=== PATIENT | female | born 1980 | race Caucasian/White ===

== ENCOUNTER 2017-07-23 15:23 | Emergency (ER) | payer OTHER ==
[2017-07-23 15:46] VITALS: BP 154/95
--- NOTE | 2017-07-23 16:00 | ER Document Report ---
ED Medical Screen (RME) - General Chief Complaint: Abdominal Pain Stated Complaint: ABDOMINAL PAIN Time Seen by Provider: 07/23/17 15:57 TRAVEL OUTSIDE OF THE [place] IN LAST 30 DAYS: No - HPI Notes: 07/23/17 16:00 Right lower quadrant abdominal pain has been ultrasound performed this morning outpatient states that her vision is fine concerned about possible appendicitis. - Related Data Allergies/Adverse Reactions: codeine [Codeine] Allergy (Unknown, Verified 05/03/12 09:25) as child Penicillins Allergy (Unknown, Verified 05/03/12 09:25) as child Past Medical History - Past Medical History Cardiac Medical History: Denies: Hx Coronary Artery Disease, Hx Heart Attack, Hx Hypertension Pulmonary Medical History: Reports: Hx Asthma - childhood Denies: Hx Bronchitis, Hx COPD, Hx Pneumonia Neurological Medical History: Denies: Hx Cerebrovascular Accident, Hx Seizures Renal/ Medical History: Denies: Hx Peritoneal Dialysis Musculoskeltal Medical History: Denies Hx Arthritis Past Surgical History: Denies: Hx Pacemaker - Immunizations Hx Diphtheria, Pertussis, Tetanus Vaccination: No Review of Systems - Review of Systems Gastrointestinal: Abdominal pain Physical Exam - Vital signs Vitals: Temp Pulse Resp BP Pulse Ox 99 F 92 16 154/95 H 99 07/23/17 15:42 07/23/17 15:42 07/23/17 15:42 07/23/17 15:42 07/23/17 15:42 - Cardiovascular Rhythm: Regular Heart sounds: Normal auscultation Course - Vital Signs Vital signs: Temp Pulse Resp BP Pulse Ox 99 F 92 16 154/95 H 99 07/23/17 15:42 07/23/17 15:42 07/23/17 15:42 07/23/17 15:42 07/23/17 15:42
[2017-07-23] MEDS ORDERED: NORMAL SALINE 1000 ML 1,000 ML IV ONE (16:03)
[2017-07-23 16:29] LABS: ABSOLUTE BASOPHILS # (AUTO) 0.1 10^3/uL (0.0-0.2); ABSOLUTE EOSINOPHILS # (AUTO) 0.1 10^3/uL (0.0-0.6); ABSOLUTE LYMPHOCYTES (AUTO) 2.1 10^3/uL (0.5-4.7); ABSOLUTE MONOCYTES (AUTO) 0.5 10^3/uL (0.1-1.4); ABSOLUTE NEUT (AUTO) 4.5 10^3/uL (1.7-8.2); APPEARANCE,URINE CLEAR; BASOPHILS % (AUTO) 0.8 % (0-2); BILIRUBIN,URINE NEGATIVE (NEGATIVE); EOSINOPHILS % (AUTO) 1.6 % (0-6); GLUCOSE, URINE NEGATIVE (NEGATIVE); HEMATOCRIT 41.7 % (36.0-47.0); HEMOGLOBIN 14.7 g/dL (12.0-15.5); HGB HCT DIFFERENCE 2.4; KETONES,URINE NEGATIVE (NEGATIVE); LEUKOCYTE ESTERASE,URINE NEGATIVE (NEGATIVE); LYMPHOCYTES % (AUTO) 28.6 % (13-45); MEAN CORPUSCULAR HEMOGLOBIN 31.6 pg (27.0-33.4); MEAN CORPUSCULAR HGB CONC 35.2 g/dL (32.0-36.0); MEAN CORPUSCULAR VOLUME 90 fl (80-97); MONOCYTES % (AUTO) 7.2 % (3-13); NITRITE,URINE NEGATIVE (NEGATIVE); PROTEIN,URINE NEGATIVE (NEGATIVE); RED BLOOD COUNT 4.64 10^6/uL (3.72-5.28); RED CELL DISTRIBUTION WIDTH 12.2 % (11.5-14.0); SEGMENTED NEUTROPHILS % (AUTO) 61.8 % (42-78); URINE SPECIFIC GRAVITY 1.008; UROBILINOGEN,URINE NEGATIVE mg/dL (<2.0); WHITE BLOOD COUNT 7.2 10^3/uL (4.0-10.5)
[2017-07-23 16:55] LABS: ALANINE AMINOTRANSFERASE 25 U/L (9-52); ALBUMIN 4.7 g/dL (3.5-5.0); ALKALINE PHOSPHATASE 63 U/L (38-126); ANION GAP 12 (5-19); ASPARTATE AMINO TRANSFERASE 21 U/L (14-36); BILIRUBIN,DIRECT 0.3 mg/dL (0.0-0.4); BILIRUBIN,TOTAL 0.6 mg/dL (0.2-1.3); BLOOD UREA NITROGEN 10 mg/dL (7-20); CARBON DIOXIDE 29 mmol/L (22-30); CHLORIDE 101 mmol/L (98-107); CREATININE RESULT 0.59 mg/dL (0.52-1.25); GLUCOSE 116 mg/dL (75-110); POTASSIUM 4.4 mmol/L (3.6-5.0); SODIUM 141.7 mmol/L (137-145); TOTAL PROTEIN 7.4 g/dL (6.3-8.2)
--- NOTE | 2017-07-23 17:41 | ER Document Report ---
ED GI/ - General Chief Complaint: Abdominal Pain Stated Complaint: ABDOMINAL PAIN Time Seen by Provider: 07/23/17 15:57 Notes: Patient is a 37-year-old male who presents emergency department complaining of right back and right lower quadrant pain. Patient states that her symptoms started yesterday evening suddenly. Patient states that she was not doing anything in particular when she had right low back pain start. Patient states that she is normally pain-free. Patient states that this morning she woke up and it felt worse kind of rotating into the right lower quadrant. Patient states his pain as a dull ache with sharp stabbing qualities. She denies any nausea or vomiting. She admits to loose stools. States that she has had her gallbladder out but otherwise denies any other abdominal procedures. Patient states that she did go see her MANAGER STYLIST today who did an ultrasound and told her that her ovaries did not show any evidence of ectopic , cysts, abscess and that she should come here for evaluation for appendicitis. Patient denies any fever, chills at this time. States her pain is at baseline at 2/30 and at worst a 4/5. TRAVEL OUTSIDE OF THE [place] IN LAST 30 DAYS: No - Related Data Allergies/Adverse Reactions: codeine [Codeine] Allergy (Unknown, Verified 07/23/17 16:02) as child Penicillins Allergy (Unknown, Verified 07/23/17 16:02) as child Past Medical History - Social History Smoking Status: Former Smoker Chew tobacco use (# tins/day): No Frequency of alcohol use: None Drug Abuse: None Family History: Reviewed & Not Pertinent Patient has suicidal ideation: No Patient has homicidal ideation: No - Past Medical History Cardiac Medical History: Denies: Hx Coronary Artery Disease, Hx Heart Attack, Hx Hypertension Pulmonary Medical History: Reports: Hx Asthma - childhood Denies: Hx Bronchitis, Hx COPD, Hx Pneumonia Neurological Medical History: Denies: Hx Cerebrovascular Accident, Hx Seizures Renal/ Medical History: Denies: Hx Peritoneal Dialysis Musculoskeltal Medical History: Denies Hx Arthritis Past Surgical History: Denies: Hx Pacemaker - Immunizations Hx Diphtheria, Pertussis, Tetanus Vaccination: No Review of Systems - Review of Systems Constitutional: No symptoms reported Cardiovascular: No symptoms reported Respiratory: No symptoms reported Gastrointestinal: See HPI Genitourinary: No symptoms reported -: Yes All other systems reviewed and negative Physical Exam - Vital signs Vitals: Temp Pulse Resp BP Pulse Ox 99 F 92 16 154/95 H 99 07/23/17 15:42 07/23/17 15:42 07/23/17 15:42 07/23/17 15:42 07/23/17 15:42 - Notes Notes: PHYSICAL EXAM GENERAL: Alert, interacts well. LUNGS: Clear to auscultation bilaterally, no wheezes, rales, or rhonchi. No respiratory distress. HEART: Regular rate and rhythm. No murmurs, gallops, or rubs. ABDOMEN: Soft, nondistended, right lower quadrant mildly tender with suprapubic tenderness. Negative McBurney's point tenderness. No guarding, rebound, or rigidity.. Bowel sounds present in all 4 quadrants. EXTREMITIES: Moves all 4 extremities spontaneously. No edema, radial and dorsalis pedis pulses 2/4 bilaterally. No cyanosis. NEUROLOGICAL: Alert and oriented x4. Normal speech. PSYCH: Normal affect, normal mood. SKIN: Warm, dry, normal turgor. No rashes or lesions noted. Course - Re-evaluation Re-evalutation: 07/23/17 17:45 Patient is a 37-year-old female who is hemodynamically stable, no acute distress and afebrile. Based on referral from MANAGER STYLIST and right lower quadrant tenderness will conduct evaluation for appendicitis. Patient has been tolerating p.o. contrast without any difficulty. Patient denies any pain or nausea at this time patient admits to tolerable RLQ pain. 07/23/17 18:[address] abd/pelvis. Declining pain medication, denies nausea 07/23/17 19:29 CT does not show any evidence of acute appendicitis. After performing a Medical Screening Examination, I estimate there is LOW risk for ACUTE APPENDICITIS, BOWEL OBSTRUCTION, ACUTE CHOLECYSTITIS, PERFORATED DIVERTICULITIS, INCARCERATED HERNIA, PANCREATITIS, PELVIC INFLAMMATORY DISEASE, PERFORATED ULCER, ECTOPIC , or TUBO-OVARIAN ABSCESS, thus I consider the discharge disposition reasonable. Also, there is no evidence or peritonitis , sepsis, or toxicity. I have reevaluated this patient multiple times and no significant life threatening changes are noted. The patient and I have discussed the diagnosis and risks, and we agree with discharging home with close follow-up with the understanding that symptoms and presentations can change. We also discussed returning to the Emergency Department immediately if new or worsening symptoms occur. We have discussed the symptoms which are most concerning (e.g., bloody stool, fever, changing or worsening pain, vomiting) that necessitate immediate return. - Vital Signs Vital signs: Temp Pulse Resp BP Pulse Ox 99 F 92 16 154/95 H 99 07/23/17 15:42 07/23/17 15:42 07/23/17 15:42 07/23/17 15:42 07/23/17 15:42 - Laboratory Result Diagrams: 07/23/17 16:07 07/23/17 16:07 Laboratory results interpreted by me: 07/23/17 16:07 Glucose 116 H - Diagnostic Test Radiology reviewed: Image reviewed, Reports reviewed Discharge - Discharge Clinical Impression: Abdominal pain Qualifiers: Abdominal location: right lower quadrant Qualified Code(s): R10.31 - Right lower quadrant pain Condition: Good Disposition: HOME, SELF-CARE Instructions: Observation for Appendicitis ([facility]) Additional Instructions: ABDOMINAL PAIN: There are many causes of abdominal pain. Pain can mean a serious problem requiring surgery (such as appendicitis). It can also be an innocent problem that goes away on its own (such as a viral infection). Often, time must pass to determine the cause of pain. The physician does not feel that hospitalization is necessary, at present. Things may change within the next 24 hours. Call the doctor or come back for re- examination if any problems occur, such as: (1) Pain that becomes more severe, steady, or becomes concentrated in one specific area. Also, pain that is more severe with movement or coughing. (2) Vomiting that persists or becomes more frequent. (3) Blood in the vomitus, urine, or bowel movements. Blood in the stool may have a tarry or black appearance. (4) Shaking chills or fever greater than 100 degrees F. (5) The abdomen becomes more distended or swollen. (6) Bowel movements cease. (7) Failure to improve as expected. NORMAL EXAM AND WORKUP: At this time, your examination and workup show no significant abnormality. No significant abnormal physical findings are noted. All laboratory, EKG, and imaging (x-ray, CT scans, ultrasound) studies that were ordered show no significant abnormality. Although your examination and all studies that were ordered showed no significant abnormal finding, there are no examinations and no studies that are 100% accurate. There is always the possibility that some abnormality could exist and not be detected with physical examination or within the limits and capabilities of laboratory and other studies. You should return or follow up as you were instructed on your visit today for further evaluation if your symptoms do not resolve. FOLLOW-UP CARE: If you have been referred to a physician for follow-up care, call the physician s office for an appointment as you were instructed or within the next two days. If you experience worsening or a significant change in your symptoms, notify the physician immediately or return to the Emergency Department at any time for re-evaluation. Referrals: RACHEL STEWART MD [Primary Care Provider] - Follow up as needed
--- NOTE | 2017-07-23 19:12 | RADIOLOGY REPORT (SQ) ---
EXAM DESCRIPTION: CT ABD/PELVIS WITH IV ORAL COMPLETED DATE/TIME: 07/23/2017 6:54 pm REASON FOR STUDY: rlq pain COMPARISON: None. TECHNIQUE: CT scan of the abdomen and pelvis performed using helical scanning technique with dynamic intravenous contrast injection. No oral contrast. Images reviewed with lung, soft tissue, and bone windows. Reconstructed coronal and sagittal MPR images reviewed. Delayed images for evaluation of the urinary system also acquired. All images stored on PACS. All CT scanners at this facility use dose modulation, iterative reconstruction, and/or weight based d osing when appropriate to reduce radiation dose to as low as reasonably achievable (ALARA). [facility]: Dose Right [facility]: CareDose [facility]: Dose Right [facility]: Teradose 4D [facility]: [employer] CONTRAST TYPE AND DOSE: contrast/concentration: Isovue 370.00 mg/ml; Total Contrast Delivered: 83.0 ml; Total Saline Delivered: 68.0 ml RENAL FUNCTION: None required. The patient is less than 50 years old. RADIATION DOSE: Up-to-date CT equipment and radiation dose reduction techniques were employed. CTDIv ol: 7.3 - 10.4 mGy. DLP: 975 mGy-cm.. LIMITATIONS: None. FINDINGS: LOWER CHEST: No significant findings. No nodules or infiltrates. LIVER: Normal size. No masses. No dilated ducts. SPLEEN: Normal size. No focal lesions. PANCREAS: No masses. No significant calcifications. No adjacent inflammation or peripancreatic fluid collections. Pancreatic duct not dilated. GALLBLADDER: No identified stones by CT criteria. No inflammatory changes to suggest cholecystitis. ADRENAL GLANDS: No significant masses or asymmetry. RIGHT KIDNEY AND URETER: No solid masses. No significant calcifications. No hydronephrosis or hyd roureter. LEFT KIDNEY AND URETER: No solid masses. No significant calcifications. No hydronephrosis or hydr oureter. AORTA AND VESSELS: No aneurysm. No dissection. Renal arteries, SMA, celiac without stenosis. RETROPERITONEUM: No retroperitoneal adenopathy, hemorrhage or masses. BOWEL AND PERITONEAL CAVITY: No masses or inflammatory changes. No free fluid or peritoneal masses. APPENDIX: Normal. PELVIS: No mass. No free fluid. Normal bladder. ABDOMINAL WALL: No masses. No significant hernias. BONES: No significant or acute findings. OTHER: No other significant finding. IMPRESSION: NO SIGNIFICANT OR ACUTE FINDING IN THE ABDOMEN OR PELVIS ON CT SCAN WITH IV CONTRAST. TECHNICAL DOCUMENTATION: JOB ID: [id number] Quality ID # [id number]: Final reports with documentation of one or more dose reduction techniques (e.g., Au tomated exposure control, adjustment of the mA and/or kV according to patient size, use of iterative reconstruction technique) 2010 [employer]- All Rights Reserved
== END 2017-07-23 19:48 | disposition home or self-care (01) ==
LOC: ER 15:23
DX: R10.31 Right lower quadrant pain (principal); M54.5 Low back pain; R19.4 Change in bowel habit; Z90.49 Acquired absence of other specified parts of digestive tract; Z88.5 Allergy status to narcotic agent; Z88.0 Allergy status to penicillin; Z87.891 Personal history of nicotine dependence
CPT/HCPCS: 99284; 96360; 96361; 36415; 87040; 84703; 85025; 80053; 81001; 74177; J7030

== ENCOUNTER 2019-08-20 16:44 | Emergency (ER) | payer OTHER ==
--- NOTE | 2019-08-20 17:04 | ER Document Report ---
ED Medical Screen (RME) - General Chief Complaint: Blood Pressure Problem Stated Complaint: BLOOD PRESSURE ISSUES Time Seen by Provider: 08/20/19 16:55 Primary Care Provider: RACHEL STEWART MD [Primary Care Provider] - Follow up as needed Information source: Patient Notes: Patient presents complaining of fatigue upper back pain. Patient states that she has had a headache off and on for 2 weeks although the headache is presently resolved. Patient also reports having an episode of blurred vision although that has returned to normal as well. Patient is concerned that her blood pressu re was elevated as she does not typically have high blood pressure. Patient denies any significant medical history. I have greeted and performed a rapid initial assessment of this patient. A comprehensive ED assessment and evaluation of the patient, analysis of test results and completion of the medical decision making process will be conducted by additional ED providers. TRAVEL OUTSIDE OF THE [place] IN LAST 30 DAYS: No - Related Data Allergies/Adverse Reactions: codeine [Codeine] Allergy (Unknown, Verified 08/20/19 16:53) as child Penicillins Allergy (Unknown, Verified 08/20/19 16:53) as child Past Medical History - Past Medical History Cardiac Medical History: Denies: Hx Coronary Artery Disease, Hx Heart Attack, Hx Hypertension Pulmonary Medical History: Reports: Hx Asthma - childhood Denies: Hx Bronchitis, Hx COPD, Hx Pneumonia Neurological Medical History: Denies: Hx Cerebrovascular Accident, Hx Seizures Renal/ Medical History: Denies: Hx Peritoneal Dialysis Musculoskeltal Medical History: Denies Hx Arthritis Past Surgical History: Denies: Hx Pacemaker - Immunizations Hx Diphtheria, Pertussis, Tetanus Vaccination: No Physical Exam - Vital signs Vitals: Temp Pulse Resp BP Pulse Ox 98.5 F 122 H 16 157/103 H 99 08/20/19 16:46 08/20/19 16:46 08/20/19 16:46 08/20/19 16:46 08/20/19 16:46 - Respiratory Respiratory status: No respiratory distress Chest status: Nontender Breath sounds: Normal Course - Vital Signs Vital signs: Temp Pulse Resp BP Pulse Ox 98.5 F 122 H 16 157/103 H 99 08/20/19 16:46 08/20/19 16:46 08/20/19 16:46 08/20/19 16:46 08/20/19 16:46 Doctor's Discharge - Discharge Referrals: RACHEL STEWART MD [Primary Care Provider] - Follow up as needed
[2019-08-20 18:26] LABS: ABSOLUTE EOSINOPHILS # (AUTO) 0.1 10^3/uL (0.0-0.6); ABSOLUTE LYMPHOCYTES (AUTO) 1.6 10^3/uL (0.5-4.7); ABSOLUTE MONOCYTES (AUTO) 0.5 10^3/uL (0.1-1.4); ABSOLUTE NEUT (AUTO) 5.7 10^3/uL (1.7-8.2); BASOPHILS % (AUTO) 0.4 % (0-2); EOSINOPHILS % (AUTO) 0.8 % (0-6); HEMATOCRIT 41.8 % (36.0-47.0); HEMOGLOBIN 14.4 g/dL (12.0-15.5); LYMPHOCYTES % (AUTO) 20.1 % (13-45); MEAN CORPUSCULAR HEMOGLOBIN 30.5 pg (27.0-33.4); MEAN CORPUSCULAR HGB CONC 34.4 g/dL (32.0-36.0); MEAN CORPUSCULAR VOLUME 89 fl (80-97); MONOCYTES % (AUTO) 5.9 % (3-13); PLATELET COUNT 236 10^3/uL (150-450); RED BLOOD COUNT 4.71 10^6/uL (3.72-5.28); RED CELL DISTRIBUTION WIDTH 12.4 % (11.5-14.0); SEGMENTED NEUTROPHILS % (AUTO) 72.8 % (42-78); TOTAL CELLS COUNTED % (AUTO) 100 %; WHITE BLOOD COUNT 7.8 10^3/uL (4.0-10.5)
[2019-08-20 18:45] LABS: ALBUMIN 4.6 g/dL (3.5-5.0); ALKALINE PHOSPHATASE 59 U/L (38-126); ANION GAP 10 (5-19); ASPARTATE AMINO TRANSFERASE 20 U/L (14-36); BILIRUBIN,DIRECT 0.1 mg/dL (0.0-0.4); BILIRUBIN,TOTAL 0.3 mg/dL (0.2-1.3); BLOOD UREA NITROGEN 13 mg/dL (7-20); CARBON DIOXIDE 27 mmol/L (22-30); CHLORIDE 103 mmol/L (98-107); GLUCOSE 99 mg/dL (75-110); POTASSIUM 3.7 mmol/L (3.6-5.0); TOTAL PROTEIN 7.2 g/dL (6.3-8.2)
--- NOTE | 2019-08-20 19:02 | RADIOLOGY REPORT (SQ) ---
EXAM DESCRIPTION: CHEST 2 VIEWS COMPLETED DATE/TIME: 08/20/2019 6:45 pm REASON FOR STUDY: upper back pain COMPARISON: None. EXAM PARAMETERS: NUMBER OF VIEWS: two views TECHNIQUE: Digital Frontal and Lateral radiographic views of the chest acquired. RADIATION DOSE: NA LIMITATIONS: none FINDINGS: LUNGS AND PLEURA: No opacities, masses or pneumothorax. No pleural effusion. MEDIASTINUM AND HILAR STRUCTURES: No masses or contour abnormalities. HEART AND VASCULAR STRUCTURES: Heart normal size. No evidence for failure. BONES: No acute findings. HARDWARE: Clips right upper quadrant post cholecystectomy OTHER: No other significant finding. IMPRESSION: NO ACUTE RADIOGRAPHIC FINDING IN THE CHEST. TECHNICAL DOCUMENTATION: JOB ID: [id number]- All Rights Reserved Reading location - IP/workstation name: [email or web address]
[2019-08-20 20:13] LABS: APPEARANCE,URINE CLEAR; BILIRUBIN,URINE NEGATIVE (NEGATIVE); COLOR,URINE YELLOW; GLUCOSE, URINE NEGATIVE (NEGATIVE); KETONES,URINE NEGATIVE (NEGATIVE); LEUKOCYTE ESTERASE,URINE NEGATIVE (NEGATIVE); NITRITE,URINE NEGATIVE (NEGATIVE); PROTEIN,URINE NEGATIVE (NEGATIVE); URINE SPECIFIC GRAVITY 1.017; UROBILINOGEN,URINE NEGATIVE mg/dL (<2.0)
[2019-08-20 21:03] VITALS: BP 141/95
--- NOTE | 2019-08-20 21:09 | ER Document Report ---
ED Blood Pressure Problem - General Chief Complaint: Blood Pressure Problem Stated Complaint: BLOOD PRESSURE ISSUES Time Seen by Provider: 08/20/19 16:55 Primary Care Provider: RACHEL STEWART MD [Primary Care Provider] - Follow up as needed TRAVEL OUTSIDE OF THE [place] IN LAST 30 DAYS: No - HPI Notes: This is a 39-year-old female who presents today with a complaint of elevated blood pressure. Patient states that she had a gradual onset slight headache yesterday and earlier today. She went to her mom's house and checked her blood pressure and was elevated. Headache is now almost completely resolved. She just has not felt well for the past week. She denies any chest pain, dizziness, weakness, visual changes or focal neurologic complaints. She denies any fever or chills. She denies any recent illness. She describes her symptoms as mild. She does not have a history of hypertension. - Related Data Allergies/Adverse Reactions: codeine [Codeine] Allergy (Unknown, Verified 08/20/19 16:53) as child Penicillins Allergy (Unknown, Verified 08/20/19 16:53) as child Past Medical History - General Information source: Patient - Social History Smoking Status: Current Every Day Smoker Frequency of alcohol use: None Lives with: Alone Family History: Hypertension Patient has suicidal ideation: No Patient has homicidal ideation: No - Past Medical History Cardiac Medical History: Denies: Hx Coronary Artery Disease, Hx Heart Attack, Hx Hypertension Pulmonary Medical History: Reports: Hx Asthma - childhood Denies: Hx Bronchitis, Hx COPD, Hx Pneumonia Neurological Medical History: Denies: Hx Cerebrovascular Accident, Hx Seizures Renal/ Medical History: Denies: Hx Peritoneal Dialysis Musculoskeletal Medical History: Denies Hx Arthritis Past Surgical History: Denies: Hx Pacemaker - Immunizations Hx Diphtheria, Pertussis, Tetanus Vaccination: No Review of Systems - Review of Systems EENT: denies: Blurred vision Cardiovascular: denies: Chest pain, Palpitations Gastrointestinal: denies: Abdominal pain, Diarrhea, Nausea Genitourinary: denies: Frequency, Flank pain Musculoskeletal: denies: Back pain, Muscle pain Neurological/Psychological: Headaches - Headache is almost completely resolved now. -: Yes All other systems reviewed and negative Physical Exam - Vital signs Vitals: Temp Pulse Resp BP Pulse Ox 98.5 F 122 H 16 157/103 H 99 08/20/19 16:46 08/20/19 16:46 08/20/19 16:46 08/20/19 16:46 08/20/19 16:46 - General General appearance: Appears well, Alert - HEENT Head: Normocephalic, Atraumatic Eyes: Normal Pupils: PERRL - Respiratory Respiratory status: No respiratory distress Chest status: Nontender Breath sounds: Normal Chest palpation: Normal - Cardiovascular Rhythm: Regular Heart sounds: Normal auscultation Murmur: No - Abdominal Inspection: Normal Distension: No distension Bowel sounds: Normal Tenderness: Nontender Organomegaly: No organomegaly - Neurological Neuro grossly intact: Yes Cognition: Normal - There is no motor, sensory or cerebellar deficits. Nonfocal neurologic exam. GCS is 15. Orientation: AAOx4 Rose Coma Scale Eye Opening: Spontaneous Whitman Coma Scale Verbal: Oriented Whitman Coma Scale Motor: Obeys Commands Rose Coma Scale Total: 15 Speech: Normal Motor strength normal: LUE, RUE, LLE, RLE Sensory: Normal - Psychological Associated symptoms: Normal affect, Normal mood - Skin Skin Temperature: Warm Skin Moisture: Dry Skin Color: Normal Course - Re-evaluation Re-evalutation: 08/20/19 21:08 Differential diagnosis includes long-standing hypertension versus new onset hypertension versus stress related elevated blood pressure. Will check basic labs. There is no clinical suspicion for CVA. There is no indication for imaging or nonfocal neurologic exam. EKG shows normal sinus rhythm at 91 bpm. Normal axis. Normal intervals. Normal EKG. 08/20/19 21:38 Patient reevaluated. Is doing well. She is asymptomatic. Blood pressure improved. EKG does not show any signs of long-standing hypertension. Consequently, I will not start this patient on antihypertensives at this time. Counseled her to reduce salt in her diet and exercise related. Also asked her to take her blood pressure measurements every morning and evening. We will refer her for outpatient follow-up. She is stable for discharge. These instructions have been given to the patient and she understands. - Vital Signs Vital signs: Temp Pulse Resp BP Pulse Ox 99.2 F 84 18 141/95 H 100 08/20/19 20:48 08/20/19 20:48 08/20/19 20:48 08/20/19 20:48 08/20/19 20:48 - Laboratory Result Diagrams: 08/20/19 18:10 08/20/19 18:10 Laboratory results interpreted by me: 08/20/19 18:10 Urine Blood SMALL H Discharge - Discharge Clinical Impression: Hypertension Qualifiers: Hypertension type: essential hypertension Qualified Code(s): I10 - Essential (primary) hypertension Condition: Stable Disposition: HOME, SELF-CARE Instructions: High Blood Pressure ([facility]) Additional Instructions: Reduce salt in your diet and exercise regularly as discussed. Keep a record of her blood pressure readings every morning and evening to take to your follow-up appointment. Return if worse or concerns. Referrals: RACHEL STEWART MD [Primary Care Provider] - Follow up in 3-5 days
--- NOTE | 2019-08-21 00:47 | EKG REPORT ---
SEVERITY:- NORMAL ECG - SINUS RHYTHM : Confirmed by: Amara Warren 21-Aug-2019 00:46:02
== END 2019-08-20 21:45 | disposition home or self-care (01) ==
LOC: ER 16:44
DX: I10 Essential (primary) hypertension (principal); R51 Headache; F17.200 Nicotine dependence, unspecified, uncomplicated; J45.909 Unspecified asthma, uncomplicated
CPT/HCPCS: 36415; 71046; 80053; 81001; 84484; 84703; 85025; 93005; 93010; 99284